=== PATIENT | female | born 1990 | race Hispanic/Latino ===

== ENCOUNTER 2021-03-08 20:33 | Emergency (ER) | payer OTHER ==
[~2021-03-08] VITALS: Ht 160 cm; Wt 60.3 kg
[2021-03-08] MEDS ORDERED: CEPHALEXIN500 MG PO (21:19)
[2021-03-08] MEDS ORDERED: IBUPROFEN600 MG PO (21:19)
[2021-03-08 21:45] VITALS: BP 100/59
== END 2021-03-08 21:45 | disposition home or self-care (01) ==
LOC: FSED 21:12
DX: R10.30 Lower abdominal pain, unspecified (principal); N12 Tubulo-interstitial nephritis, not specified as acute or chronic; M54.50 Low back pain, unspecified; Z86.16 Personal history of COVID-19
CPT/HCPCS: 99282